=== PATIENT | female | born 1940 | race Caucasian/White ===

== ENCOUNTER 2018-02-11 09:45 | Inpatient (IN) | payer MEDICARE ==
[2018-02-11 11:10] VITALS: BMI 20.3
[2018-02-11] MEDS ORDERED: Amlodipine 5 MG TAB PO SCH (13:30)
[2018-02-11] MEDS ORDERED: Carvedilol 25 MG TAB PO SCH (13:30)
[2018-02-11] MEDS ORDERED: traMADol HCl 50 MG TAB PO PRN (15:26)
[2018-02-11] MEDS ORDERED: Acetaminophen 325 MG TAB PO PRN (15:26)
[2018-02-11] MEDS ORDERED: Dextrose 50% Abboject 50 ML SYRINGE SLOW IVP PRN (15:26)
[2018-02-11] MEDS ORDERED: Ondansetron ODT 4 MG TAB PO PRN (15:26)
[2018-02-11] MEDS ORDERED: Ondansetron HCl/PF 4 MG/2 ML Vial IVP PRN (15:26)
[2018-02-11] MEDS ORDERED: Dextrose 5% in Water 1,000 ML IV PRN (15:26)
[2018-02-11] MEDS ORDERED: HumaLOG 300 UNITS/3 ML VIAL SC PRN ×2 (15:26)
[2018-02-11] MEDS ORDERED: GoLYTELY 4,000 ml Bottle PO SCH (17:00)
[2018-02-11] MEDS: hydrALAZINE 20 MG/ML VIAL SLOW IVP PRN (18:14)
[2018-02-11] MEDS ORDERED: Labetalol HCl 100 MG/20 ML VIAL SLOW IVP PRN (20:36)
[2018-02-11] MEDS: Carvedilol 25 MG TAB PO SCH (21:22)
--- NOTE | 2018-02-11 21:41 | CON ---
DATE OF CONSULTATION: 02/11/2018 REASON FOR CONSULTATION: Symptomatic anemia, iron-deficiency anemia. CONSULTING PHYSICIAN: Dr. Jameson Tang. HISTORY OF PRESENT ILLNESS: The patient is a 77-year-old female with past medical history of hyperli pidemia, hypertension, diabetes, hypothyroidism, atrial fibrillation on chronic anticoagulation, cere brovascular accident, coronary artery disease, and chronic lower back pain presenting with complaints of shortness of breath. She states that over the last year, she has been having progressively worse kushal complaints of weakness, shortness of breath, and dyspnea on exertion more especially within the last couple of months. This was also associated with increased dizziness/lightheadedness that has be en occurring over the last few months, where the patient will feel as "all the blood is rushing to my head." In addition to the above, she states that she has had approximately 20 to 40 pounds weight loss over the last 6-12 months unintentionally, although she had participated in an herbal supplement program in the summer of last year, where she was taking many different supplements that were report ed to treat her diabetes and cure her all these ailments. The number and type of these supplements i s unknown at this time. She also complains of increased nausea and vomiting primarily with the consu mption of coffee in the morning, where shortly after her consumption of the coffee, she will have dry heaves; however, with discontinuation of coffee ingestion this symptom will not occur. Currently, s he denies any nausea, vomiting, fevers, chills, abdominal pain, GI bleeding, odynophagia, or dysphagi a. Of note, the patient was recently stopped on her anticoagulation due to an arthroplasty performed on 12/02/2017 and she was noted to have a hemoglobin of 8.2 at that particular point in time. With the worsening of her shortness of breath, she was evaluated in the GI clinic with routine labs and iron i ndices obtained at that time showing a hemoglobin of 6. Iron of 21, ferritin of 13, and TIBC of 398. Concerning for iron-deficiency anemia, upon evaluation of these labs, she was ultimately recommende d that she proceeded to [facility] for further evaluation. REVIEW OF SYSTEMS: A 10-category review of systems was obtained with all responses negative except f or the pertinent positives as listed in the HPI. PAST MEDICAL HISTORY: As per HPI. PAST SURGICAL HISTORY: Hysterectomy, cataract surgery, cardiac stenting in 2013. SOCIAL HISTORY: Denies any tobacco, alcohol or illicit drug use. FAMILY HISTORY: Denies any GI malignancies. OUTPATIENT MEDICATIONS: 1. Amiodarone 100 mg daily. 2. Amlodipine 5 mg daily. 3. Atorvastatin 40 mg at night. 4. Carvedilol 25 mg b.i.d. 5. Levothyroxine 112 mcg one-half tablet daily. 6. Lisinopril 20 mg twice daily 7. Metformin 500 mg twice daily. ALLERGIES: IODINE. PHYSICAL EXAMINATION: VITAL SIGNS: Temperature 98.1, pulse 65, blood pressure 173/65, respiratory rate 18, satting 93% on room air. GENERAL: Patient was lying in bed in no acute distress. Alert and oriented x4. HEENT: Normocephalic, atraumatic. NECK: Supple. No JVD or scleral icterus noted. CARDIOVASCULAR: Regular rate and rhythm. A 3/6 systolic murmur best heard at the left lower sternal border, otherwise no discernible gallops or rubs. LUNGS: Clear to auscultation bilaterally with no discernible wheezes or rales. ABDOMEN: Normoactive bowel sounds, soft, nontender, nondistended. EXTREMITIES: No cyanosis, clubbing, or edema. LABORATORY DATA: Review of outside records with CBC with a white blood cell count of 6.7, hemoglobin 6.5, hematocrit 20.7, platelets 315, MCV 77, RDW 17. Iron 21, ferritin 13, TIBC 398 and B12 of 193, folate greater than 20. IMAGING DATA: 1. No current GI imaging is available for review; however, patient underwent a colonoscopy on 2015, which showed sigmoid diverticulosis. 2. 1-2 mm rectosigmoid polyps. A 5 mm polyp at the ileocecal valve 3. Internal and external hemorrhoids. The pathology surrounding the polyps seen showed ischemic pat tern colopathy within the cecum as well as hyperplastic polyps were removed from the rectosigmoid are a. ASSESSMENT AND PLAN: The patient is a 77-year-old female with past medical history of hyperlipidemia , hypertension, diabetes, hypothyroidism, atrial fibrillation on chronic anticoagulation, cerebrovasc ular accident, coronary artery disease, and chronic lower back pain presenting with symptomatic anemi a. Symptomatic anemia. The patient is presenting with a year long history of progressively worsening sh ortness of breath, dizziness, and dyspnea on exertion with acceleration of her symptoms within the la st 1-2 months. She also endorses a weight loss of approximately 20-40 pounds over the past year unin tentionally, although she had been on a supplement program at the summer of last year for general a [facility] benefits (not for the purpose of weight loss). Her last colonoscopy was approximately 2-1/2 year s ago with no significant findings at that particular point in time, but she has never had an upper e ndoscopy per our records. At this time, she is presenting with iron indices that are consistent with iron iron-deficiency anemia while on anticoagulation, which could be due to an occult GI bleed. Dif ferential could include esophagitis, gastritis, peptic ulcer disease, colitis especially ischemia, ar teriovenous malformation, Dieulafoy lesion, and/or GI neoplasm (less likely). RECOMMENDATIONS: 1. We would continue to trend H&H and transfuse as necessary to maintain an H&H of 7/21. 2. Continue to monitor clinically for signs of GI bleeding. 3. We would place the patient on a clear liquid diet today and make the patient n.p.o. at midnight i n preparation for endoscopy tomorrow. 4. We will perform both EGD and colonoscopy tomorrow for evaluation of iron-deficiency anemia. Furt her recommendations to follow endoscopy. 5. We would place the patient on B12 supplementation, given her low B12 levels. 6. We will obtain auto antibodies for possible pernicious anemia. We will continue to follow. Please call with any questions.
[2018-02-11] MEDS: Sodium Chloride 0.9% 1,000 ML IV SCH (22:23)
[2018-02-12] MEDS: hydrALAZINE 20 MG/ML VIAL SLOW IVP PRN ×2 (02:25→14:15)
[2018-02-12 04:20] LABS: #Eosinphils 0.1 thou/uL (0.0-0.7); #Lymphocytes 1.6 thou/uL (1.20-3.40); #Monocytes 0.7 thou/uL (0.11-0.59); #Neutrophils 4.3 thou/uL (1.40-6.50); %Basophils 0.6 % (0.0-1.0); %Eosinophils 1.5 % (0.0-10.0); %Lymphocytes 23.8 % (21.0-51.0); %Monocytes 10.6 % (0.0-10.0); %Neutrophils 63.6 % (42.0-75.0); Hemoglobin 9.8 g/dL (12.0-16.0); Mean Corpuscular HGB CONC 32.2 g/dL (32.0-36.0); Mean Corpuscular Hemoglobin 26.3 pg (27.0-31.0); Mean Corpuscular Volume 81.8 fL (78.0-98.0); Mean Platelet Volume 8.4 fL (7.4-10.4); Platelet Count 271 thou/uL (130-400); RBC Distribution Width 17.6 % (11.5-14.5); Red Blood Cell (RBC) Count 3.73 mill/uL (4.20-5.40); White Blood Cell (WBC) Count 6.8 thou/uL (4.8-10.8)
[2018-02-12 04:58] LABS: Anion Gap 14 mmol/L (10-20); BUN (Urea Nitrogen) 7 mg/dL (9.8-20.1); Calc. Creatinine Clearance 54 mL/min (70-130); Calcium 9.2 mg/dL (7.8-10.44); Carbon Dioxide 26 mmol/L (23-31); Chloride 103 mmol/L (98-107); Estimated GFR-MDRD 72; Glucose 111 mg/dL (83-110); Sodium 140 mmol/L (136-145)
[2018-02-12 05:02] LABS: Potassium 2.9 mmol/L (3.5-5.1)
[2018-02-12] MEDS: Sodium Chloride 0.9% 1,000 ML IV SCH (05:27)
[2018-02-12] MEDS ORDERED: Magnesium 2 GM/50 ML 2 GM in Premix Bag 1 BAG IVPB SCH (06:00)
[2018-02-12] MEDS ORDERED: Nitroglycerin 2% Ointment 1 INCH/1 GM Packet TOP SCH (06:30)
[2018-02-12] MEDS: Carvedilol 25 MG TAB PO SCH (08:27)
[2018-02-12] MEDS: Potassium Chloride 20 MEQ in Premix Bag 1 BAG IVPB SCH ×2 (08:28→11:57)
[2018-02-12] MEDS ORDERED: Lisinopril 20 MG TAB PO SCH (09:00)
[2018-02-12] MEDS ORDERED: Amlodipine 5 MG TAB PO SCH (09:00)
--- NOTE | 2018-02-12 13:53 | OP ---
DATE OF PROCEDURE: 02/12/2018 GI ENDOSCOPY NOTE SURGEON: Farhat Butler M.D. INSTRUMENT PROCESSING TECH SURGEON: None. PROCEDURES: 1. EGD with biopsies. 2. Colonoscopy with snare polypectomy. INDICATION: Iron deficiency anemia. MEDICATIONS: See anesthesia record. FINDINGS: After discussion of the risks, benefits and alternatives of the procedure, informed consen t was obtained and witnessed. Pre-endoscopic cardiopulmonary examination was satisfactory. Timeout was performed before sedation was achieved. Sedation was achieved with anesthesia assistance in the endoscopy unit. A Pentax adult upper endoscope was placed into the oropharynx and passed through the cricophryngeus under direct visualization. The esophageal mucosa appeared normal throughout with a normal-appearing Z-line. The endoscope was advanced into the stomach. Forward and retroflexed views of the entire gastric mucosa were obtained. The gastric mucosa appeared normal throughout. There w as no evidence of any mucosal abnormalities. No evidence of any old blood or active bleeding on forw isabel and retroflexed views in the stomach. The endoscope was advanced through the pylorus and into th e first and second portions of the duodenum, which also appeared normal. I did obtain biopsies from the second portion of the duodenum and the duodenal bulb to rule out celiac disease. The upper endos cope was completely withdrawn and the patient was repositioned. A digital rectal exam was performed which demonstrated external hemorrhoids. A Pentax adult colonosc ope was inserted into the anus and passed forward to the cecum in the usual fashion. The cecal base was identified by the appendiceal orifice as well as the ileocecal valve. The terminal ileum was not intubated. The colonoscope was then slowly withdrawn in a gradual circumferential manner with caref ul examination of the entire colonic mucosa. The quality of the prep was good. The colonic mucosa a ppeared normal throughout. There was no evidence of any old blood or active bleeding in the colon. No evidence of any mucosal abnormalities in the descending colon. There was a single tiny 1 mm sessi le polyp. This was completely removed with cold snare, but unable to be retrieved for pathology. In the sigmoid colon, there was a couple of small to medium sized diverticula. Retroflexion in the rec jasvir demonstrated internal hemorrhoids. The colonoscope was completely withdrawn and the procedure wa s completed. IMPRESSION: 1. Normal esophagogastroduodenoscopy, with duodenal biopsies obtained to rule out celiac disease. 2. Sigmoid diverticulosis. 3. A 1 mm descending colon polyp, completely removed with cold snare, not retrieved for pathology. 4. Internal and external hemorrhoids. 5. Otherwise, normal colonoscopy to the cecum. 6. No findings on today's examination to explain her iron deficiency anemia. RECOMMENDATIONS: 1. Follow up pathology on the duodenal biopsies. 2. Advance diet. 3. Iron supplementation. 4. We will have our office arrange for small bowel capsule endoscopy on an outpatient basis chan hong. 5. No barriers to discharge from a GI perspective. Please call back anytime with questions or concerns.
[2018-02-12] MEDS ORDERED: Lidocaine 1% PF 5 ML VIAL ONE (14:31)
[2018-02-12] MEDS ORDERED: PROPOFOL 200 MG/20 ML VIAL ONE (14:31)
[2018-02-12 16:48] VITALS: BP 189/63; TEMP 98.4
[2018-02-15 16:13] LABS: Intrinsic Factor Block Autoabs 1.1 AU/mL (0.0-1.1)
== END 2018-02-12 18:21 | disposition home or self-care (01) | DRG 812 ==
LOC: T4-B 10:48
PROVIDERS: ADMIT Internal Medicine Infectious Disease; ATTEND Internal Medicine Infectious Disease
PROC: 0DB98ZX Excision of Duodenum, Via Natural or Artificial Opening Endoscopic, Diagnostic (ICD-10-PCS; principal; 2018-02-12)
PROC: 0DBM8ZZ Excision of Descending Colon, Via Natural or Artificial Opening Endoscopic (ICD-10-PCS; 2018-02-12)
DX: D50.9 Iron deficiency anemia, unspecified (principal); E78.5 Hyperlipidemia, unspecified; I10 Essential (primary) hypertension; E11.9 Type 2 diabetes mellitus without complications; E03.9 Hypothyroidism, unspecified; I48.91 Unspecified atrial fibrillation; Z79.01 Long term (current) use of anticoagulants; I25.10 Atherosclerotic heart disease of native coronary artery without angina pectoris; Z86.73 Personal history of transient ischemic attack (TIA), and cerebral infarction without residual deficits; G89.29 Other chronic pain; M54.5 Low back pain; K63.5 Polyp of colon; K57.30 Diverticulosis of large intestine without perforation or abscess without bleeding; K64.4 Residual hemorrhoidal skin tags; K64.8 Other hemorrhoids
CPT/HCPCS: 36415; 36416; 36430; 80048; 83735; 83921; 85025; 86340; 86850; 86900; 86901; 88305; J0360; J2001; J2704; J3480; P9016

== ENCOUNTER 2018-03-16 09:00 | Outpatient (CLI) | payer MEDICARE ==
[2018-03-16] MEDS ORDERED: Iopamidol 370 76% 100 ML VIAL ONE (11:42)
--- NOTE | 2018-03-16 11:57 | CT ---
CT CHEST WITH CONTRAST CT ABDOMEN AND PELVIS WITH CONTRAST: History: Weight loss with pelvic pain, anemia, and shortness of breath. Comparison: CTA chest 08-04-16 Technique: 1. Multiple contiguous axial images were obtained in a CT of the chest with contrast. Coronal reforma ts were performed. 2. Multiple contiguous axial images were obtained in a CT of the abdomen and pelvis with contrast. Co bud reformats were performed. FINDINGS: CT CHEST: The heart is normal in size without focal cardiac abnormality. The patient has a pacemaker with its l rowena in the right atrium of the ventricle. No hilar or mediastinal lymphadenopathy are seen. No suspicious pulmonary nodules or focal infiltrates are seen in the lungs. No pneumothorax or pleura l effusion are seen. The chest wall soft tissues are unremarkable. The bones of the chest are unremarkable. CT ABDOMEN AND PELVIS: There is a 6.6 cm cyst in the right kidney. Other subcentimeter hypodensities in both kidneys likely represent cysts but are too small to definitely characterize. There is prominence of the right renal pelvis and proximal right ureter. No calcifications are seen in either kidney. The liver, gallbladder, adrenal glands, and pancreas are unremarkable. Calcifications in the spleen a re from prior granulomatous disease. There is scattered diverticula in the colon. The small bowel is unremarkable. Moderate stool retentio n is seen in the colon. The appendix is unremarkable. No abdominal or pelvic lymphadenopathy are seen . Atherosclerotic calcifications are seen in the aorta. No abdominal or pelvic lymphadenopathy are seen . The patient has a left hip prosthesis. Degenerative changes are seen in the lumbar spine. The abdom inal wall soft tissues are unremarkable. IMPRESSION: 1. No significant intrathoracic abnormality. 2. Bilateral renal cysts. 3. Diverticulosis. 4. No evidence of acute intraabdominal/pelvic abnormality. POS: [facility]
== END 2018-03-16 09:01 | disposition home or self-care (01) ==
LOC: CT 09:00
PROVIDERS: ATTEND Internal Medicine Hematology & Oncology
DX: R06.02 Shortness of breath (principal); R63.4 Abnormal weight loss; R53.1 Weakness; D50.8 Other iron deficiency anemias; N28.1 Cyst of kidney, acquired; K57.90 Diverticulosis of intestine, part unspecified, without perforation or abscess without bleeding
CPT/HCPCS: 71260; 74177

== ENCOUNTER 2018-11-17 14:03 | Outpatient (CLI) | payer MEDICARE ==
[2018-11-17 15:18] LABS: #Eosinphils 0.2 thou/uL (0.0-0.7); #Lymphocytes 2.9 thou/uL (1.20-3.40); #Neutrophils 5.3 thou/uL (1.40-6.50); %Basophils 0.3 % (0.0-1.0); %Lymphocytes 30.7 % (21.0-51.0); %Monocytes 10.9 % (0.0-10.0); %Neutrophils 56.1 % (42.0-75.0); Hemoglobin 13.9 g/dL (12.0-16.0); Mean Corpuscular HGB CONC 33.8 g/dL (32.0-36.0); Mean Corpuscular Volume 94.7 fL (78.0-98.0); Mean Platelet Volume 7.8 fL (7.4-10.4); Platelet Count 230 thou/uL (130-400); RBC Distribution Width 12.8 % (11.5-14.5); Red Blood Cell (RBC) Count 4.34 mill/uL (4.20-5.40); White Blood Cell (WBC) Count 9.4 thou/uL (4.8-10.8)
[2018-11-17 15:42] LABS: Anion Gap 15 mmol/L (10-20); BUN (Urea Nitrogen) 16 mg/dL (9.8-20.1); Calc. Creatinine Clearance 0 mL/min (70-130); Carbon Dioxide 26 mmol/L (23-31); Chloride 99 mmol/L (98-107); Estimated GFR-MDRD 48; Potassium 4.2 mmol/L (3.5-5.1); Sodium 136 mmol/L (136-145)
[2018-11-17 15:43] LABS: Glucose 96 mg/dL (83-110)
[2018-11-17 15:49] LABS: Bilirubin Negative (Negative); Blood, Urine Negative (Negative); Clarity Clear (Clear); Glucose, Urine (Dipstick) Normal (Negative); Leukocyte 25 Leu/uL (Negative); Nitrite Negative (Negative); Protein, Urine (Dipstick) 200 mg/dL (Neg-Trace); RBC/HPF 0-3 HPF (0-3); Squamous Epithelial 0-3 HPF (0-3); Urobilinogen Normal mg/dL (Less than 2)
[2018-11-17 16:10] LABS: Bacteria/HPF Rare-Few HPF (None Seen)
== END 2018-11-17 14:04 | disposition home or self-care (01) ==
LOC: LABBT 14:03
PROVIDERS: ATTEND Orthopaedic Surgery Hand Surgery
DX: Z01.818 Encounter for other preprocedural examination (principal); M67.432 Ganglion, left wrist; M19.032 Primary osteoarthritis, left wrist
CPT/HCPCS: 80048; 81001; 85025; 93005; 93010

== ENCOUNTER 2018-11-19 08:53 | Day surgery (SDC) | payer MEDICARE ==
[2018-11-17 14:17] VITALS: BMI 21.4
[2018-11-19] MEDS ORDERED: ceFAZolin Sodium (SDC) 2 GM/100 ML BAG ONE (10:22)
[2018-11-19] MEDS ORDERED: Lidocaine 1% (PF) 30 ML VIAL ONE (10:42)
[2018-11-19] MEDS ORDERED: Fentanyl 100 MCG/2 ML VIAL ONE (10:42)
[2018-11-19] MEDS ORDERED: Midazolam HCl 2 mg/2 ml Vial ONE (10:42)
[2018-11-19 11:22] LABS: #Basophils 0.1 thou/uL (0.0-0.2); #Eosinphils 0.1 thou/uL (0.0-0.7); #Monocytes 0.4 thou/uL (0.11-0.59); #Neutrophils 2.9 thou/uL (1.40-6.50); %Basophils 0.9 % (0.0-1.0); %Eosinophils 2.3 % (0.0-10.0); %Lymphocytes 36.5 % (21.0-51.0); %Neutrophils 52.4 % (42.0-75.0); Hemoglobin 13.4 g/dL (12.0-16.0); Mean Corpuscular HGB CONC 33.9 g/dL (32.0-36.0); Mean Corpuscular Hemoglobin 31.8 pg (27.0-31.0); Mean Corpuscular Volume 93.9 fL (78.0-98.0); Mean Platelet Volume 7.4 fL (7.4-10.4); Platelet Count 189 thou/uL (130-400); RBC Distribution Width 12.5 % (11.5-14.5); Red Blood Cell (RBC) Count 4.23 mill/uL (4.20-5.40); White Blood Cell (WBC) Count 5.5 thou/uL (4.8-10.8)
== END 2018-11-19 12:58 | disposition home or self-care (01) ==
LOC: SDC 08:53 → EEVIPCON 14:00
PROVIDERS: ATTEND Orthopaedic Surgery Hand Surgery
DX: M19.132 Post-traumatic osteoarthritis, left wrist (principal); M67.432 Ganglion, left wrist; M18.0 Bilateral primary osteoarthritis of first carpometacarpal joints; Z53.09 Procedure and treatment not carried out because of other contraindication
CPT/HCPCS: 36415; 85025; J0690; J2001; J2250; J3010

== ENCOUNTER 2018-12-03 05:48 | Day surgery (SDC) | payer MEDICARE ==
[2018-12-02 14:35] VITALS: BMI 21.7
[2018-12-03] MEDS ORDERED: Midazolam HCl 2 mg/2 ml Vial ONE ×2 (06:23→06:56)
[2018-12-03] MEDS ORDERED: Fentanyl 100 MCG/2 ML VIAL ONE ×3 (06:23→06:25)
[2018-12-03] MEDS ORDERED: Thrombin 5000 UNITS/5 ML VIAL ONE (06:32)
[2018-12-03] MEDS ORDERED: Sodium Chloride 0.9% 10 ML ONE (06:32)
[2018-12-03] MEDS ORDERED: Bacitracin Zinc Ointment 30 gm TUBE ONE (06:32)
[2018-12-03] MEDS ORDERED: ceFAZolin Sodium (SDC) 2 GM/100 ML BAG ONE (06:47)
[2018-12-03] MEDS ORDERED: Propofol 500 MG/50 ML VIAL ONE (06:56)
[2018-12-03] MEDS ORDERED: Ketorolac Tromethamine 30 MG/ML VIAL IVP PRN (08:22)
[2018-12-03] MEDS ORDERED: Promethazine HCl 25 MG/ML VIAL IM PRN (08:22)
[2018-12-03] MEDS ORDERED: Zolpidem Tartrate 5 MG TAB PO PRN (08:22)
[2018-12-03] MEDS ORDERED: HYDROcodone/Acetaminophen 5/325 mg Tablet PO PRN ×2 (08:22)
[2018-12-03] MEDS ORDERED: traMADol HCl 50 MG TAB PO PRN ×2 (08:22)
[2018-12-03] MEDS ORDERED: Ondansetron PF 4 MG/2 ML Vial IVP PRN (08:22)
[2018-12-03] MEDS ORDERED: Ropivacaine 0.2% 550 ML 550 ML NERVE BLCK SCH (08:22)
--- NOTE | 2018-12-03 13:23 | RAD ---
3 VIEWS LEFT WRIST: Date: 12/03/18 COMPARISON: None. HISTORY: Scaphoid extraction and wrist fusion. FINDINGS/IMPRESSION: Multiple limited intraoperative fluoroscopic views of the left wrist were submitted for interpretatio n. The patient has ongoing removal of the scaphoid bone. Multiple screws are seen spanning the carpal bones on the last images. POS: [facility]
--- NOTE | 2018-12-03 16:53 | OP ---
DATE OF PROCEDURE: 12/03/2018 PREOPERATIVE DIAGNOSES: 1. Left wrist extensor tenosynovitis involving the extensor digitorum communis, all extensor carpi radialis brevis, extensor carpi radialis longus. 2. 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 3. Scapholunate advanced collapse wrist, stage III with excellent lunate and radial lunate fossa articular surface. 4. Extensor carpi radialis brevis and extensor carpi radialis longus longitudinal tendon tear is greater than 1 cm in length. PROCEDURE PERFORMED: 1. Radical extensor tenosynovectomy of the extensor carpi radialis brevis, extensor carpi radialis longus, extensor digitorum communis to all the digits. 2. Synovectomy wrist joint with intraoperative frozen section sent demonstrating pseudogout crystals. 3. Extensor carpi radialis longus repair. 4. Extensor carpi radialis brevis repair. 5. Scaphoid excision. 6. Four-corner arthrodesis. 7. C-arm use. SPECIMEN: 1. Tenosynovial wrist joint. 2. Tenosynovial extensor tendons. ESTIMATED BLOOD LOSS: 20 mL. TOURNIQUET TIME: 120 minutes. INTRAOPERATIVE FINDINGS: Again, tenosynovitis and the synovitis of the wrist described above with pseudogout crystals seen on specimen. DESCRIPTION OF PROCEDURE: After successful general endotracheal anesthesia, the limb was prepped and draped. The limb was identified via time-out to be the left side, she had obvious swelling in the market preop and the consent matched the history and physical and these findings. Once time-out was done, and the limb was prepped and draped, limb was exsanguinated, tourniquet inflated to 250 mmHg pressure. A zigzag incision was made, very generous, dissected through the skin, saved the large tenosynovial swelling, which was easily seen to surround the ECRL, ECRB, spared the EPL and involved the EDC. We did identify superficial radial and superficial ulnar nerve, protected them throughout the entire procedure. We made a Z release of the retinaculum, peeled it back and tagged both sides with a 2-0 Vicryl undyed. We then saw the marked tenosynovial swelling and then used each extensor digitorum communis tendon to each of the four digits, underwent individual radical tenosynovectomy, followed by a radical tenosynovectomy of the ECRL, ECRB with the ECRL having the greatest involvement, where there was a 1 cm area with almost 40% of the tendon had been eroded. Proximally, there was a 2 cm area on ECRB, where approximately 20% erosion or so. The eroded tendon was debrided, and then, longitudinal repair was performed with a 4-0 Prolene in a running fashion. Once the tendon repair at ECRL and ECRB was completed, an extensor tenosynovectomy was completed, we then approached the wrist joint. First, a large capsular flap in a rectangular shape was made as the scaphoid was already protruding through the capsule interval of 6 mm area. We then debrided material that looked to be the same type seen with crystal arthropathy and sent a specimen of this along with the capsule as well as the tendon tenosynovectomy to the lab with an order for a frozen to look for gout. It came back 1 hour later as crystal arthropathy pseudogout. We then saw that the scaphoid was nearly 90% bald, radioscaphoid fossa was eroded, but the lunate fossa was intact with no chondral loss and it was no chondral loss on the lunate itself, so this was preserved. The capitate, hamate, and the articulation with the lunate showed over 50% loss of bone down to inebriated bone. We then began a series of using a rongeur, bur, and curette to get the cancellous bone and we decorticated the surfaces for the four-corner fusion to include the lunotriquetral area. We then took the scaphoid, removed bone graft from it, but it was not enough for the fusion due to the deterioration of the bone, so we had to use cancellous chips, which were soaked with normal saline on the back table with blood. We then finished our decortication, reduced it to get a maximum of coaptation of the lunate on the capitate, placed a bone graft in all 4 sites until that was packed from posterior to dorsal, and provisionally fixed these wires to the capitolunate and the hamate and triquetrum. This was done while we closed the lunate to the triquetrum. Once we saw excellent position to include complete reduction of the previous dorsal tilt of the lunate, we then placed more bone graft, and then began a series of screws, from the capitate to the lunate with a 3.0 headless screw compressed, from the hamate to the triquetrum 3.0 screw compressed, and then for the lunate triquetrum, from an ulnar to radial aspect, we placed the 2.4 headless screws compressed as we did the same screw in the reduced hamate to capitate. Released the tourniquet. We had excellent hemostasis. Some bone graft was pushed out with the compression, it was packed back in, and then, there were no gaps in the joint clinically or radiographically. We obtained hemostasis, we then closed the capsule with an interrupted #1 Ethibond, we then closed the retinaculum with a 2-0 Vicryl, subcutaneous closed with a running 4-0 Monocryl, and the skin was approximated with 4-0 nylon. The patient had a block, so left the operating room without injection and no evidence of anesthetic or operative complication in a sugar-tong splint. Job ID: [id number]
== END 2018-12-03 13:45 | disposition home or self-care (01) ==
LOC: SDC 05:48
PROVIDERS: ATTEND Orthopaedic Surgery Hand Surgery
PROC: 0LB60ZZ Excision of Left Lower Arm and Wrist Tendon, Open Approach (ICD-10-PCS; principal; 2018-12-03)
PROC: 0RGP07Z Fusion of Left Wrist Joint with Autologous Tissue Substitute, Open Approach (ICD-10-PCS; 2018-12-03)
PROC: 0RGP04Z Fusion of Left Wrist Joint with Internal Fixation Device, Open Approach (ICD-10-PCS; 2018-12-03)
DX: M19.132 Post-traumatic osteoarthritis, left wrist (principal); M11.232 Other chondrocalcinosis, left wrist; M65.88 Other synovitis and tenosynovitis, other site; M18.0 Bilateral primary osteoarthritis of first carpometacarpal joints; I10 Essential (primary) hypertension; E11.9 Type 2 diabetes mellitus without complications; E03.9 Hypothyroidism, unspecified; Z79.84 Long term (current) use of oral hypoglycemic drugs; Z79.899 Other long term (current) drug therapy; Z91.041 Radiographic dye allergy status; Z96.642 Presence of left artificial hip joint; Z96.653 Presence of artificial knee joint, bilateral
CPT/HCPCS: 25810; 73110; 76000; A4306; C1713; 88304; 88305; 88311; 88333; 89060; J0131; J0690; J2250; J2704; J2795; J3010; J3490

== ENCOUNTER 2018-12-16 13:35 | Outpatient (CLI) | payer MEDICARE ==
--- NOTE | 2018-12-16 17:41 | CT ---
HEAD CT NONCONTRAST: INDICATION: Dizziness with frequency of falls. FINDINGS: There is no acute intracranial hemorrhage, mass effect, or midline shift. Comparing to 02/16/2015 exam, there has been no significant interval detrimental change. A mild degr ee of global atrophy is similar-appearing. Mild chronic ischemic disease of the cerebral white matte r is present. There are inspissated secretions of the partially imaged left maxillary sinus. Mucosa l thickening is seen within the paranasal sinuses. Maxillary sinus fernandez are thickened indicating se quelae from chronic sinusitis. Partially imaged nasal bone deformity is present. Correlate for evid ence of nasal injury. IMPRESSION: 1. No acute intracranial hemorrhage or mass effect. 2. Nasal bone irregularity. This is of indeterminate acuity on the basis of this exam. Recommend c linical correlation. 3. Paranasal sinus inflammatory disease as above. POS: [facility]
== END 2018-12-16 13:36 | disposition home or self-care (01) ==
LOC: BICCT 13:35
PROVIDERS: ATTEND Internal Medicine Geriatric Medicine
DX: R42 Dizziness and giddiness (principal); R29.6 Repeated falls; J32.9 Chronic sinusitis, unspecified; J34.89 Other specified disorders of nose and nasal sinuses
CPT/HCPCS: 70450

== ENCOUNTER 2019-06-08 13:57 | Emergency (ER) | payer MEDICARE ==
--- NOTE | 2019-06-08 15:17 | RAD ---
Exam: XR Knee Rt 4 View STANDARD HISTORY: Right knee pain which started one day ago with swelling and large bruised posterior thigh. COMPARISON: None FINDINGS: Right total knee prosthesis is noted without evidence of hardware complication. No acute fracture, dislocation, or other acute osseous abnormality is identified. Vascular calcifications are seen posterior to the knee. IMPRESSION: Right total knee prosthesis without evidence of an acute osseous abnormality.
--- NOTE | 2019-06-08 15:45 | ULT ---
ULTRASOUND WITH DOPPLER DUPLEX VENOUS LOWER EXTREMITY RIGHT: 06/08/19 HISTORY: 79-year-old female with right lower extremity edema. TECHNIQUE: Color flow Doppler, spectral waveform analysis of pulsed Doppler, and ralph-scale imaging with justina dann and augmentation, were used to evaluate the right common femoral, femoral, popliteal, posterior tibial, and superficial femoral, veins; and the proximal portions of the profunda femoral and greater saphenous, veins. FINDINGS: There is normal compressibility, demonstration of blood flow by color Doppler and pulsed Doppler, and response to augmentation, in all interrogated veins. IMPRESSION: Negative. No deep vein thrombosis in the right lower extremity. jn [] POS: [facility]
== END 2019-06-08 16:00 | disposition home or self-care (01) ==
LOC: ERS 13:57
DX: S70.11XA Contusion of right thigh, initial encounter (principal); E11.9 Type 2 diabetes mellitus without complications; E03.9 Hypothyroidism, unspecified; I10 Essential (primary) hypertension; Z79.84 Long term (current) use of oral hypoglycemic drugs; Z79.899 Other long term (current) drug therapy; W19.XXXA Unspecified fall, initial encounter

== ENCOUNTER 2020-07-12 17:19 | Outpatient (CLI) | payer MEDICARE | END 2020-07-12 17:20 | disposition home or self-care (01) | LOC: LABBT 17:19 | PROVIDERS: ATTEND Orthopaedic Surgery Hand Surgery | DX: Z01.818 Encounter for other preprocedural examination (principal); M65.332 Trigger finger, left middle finger; T84.84XA Pain due to internal orthopedic prosthetic devices, implants and grafts, initial encounter; Z20.822 Contact with and (suspected) exposure to COVID-19 | CPT/HCPCS: 85025; U0003; U0005; 87635; 93005; 93010 ==

== ENCOUNTER 2020-07-13 14:00 | Outpatient (CLI) | payer MEDICARE ==
[2020-07-13 14:52] LABS: Bilirubin Neg (Negative); Blood, Urine Negative (Negative); Clarity Clear (Clear); Glucose, Urine (Dipstick) Normal (Negative); Ketone, Urine Negative (Negative); Leukocyte 25 (Negative); Nitrite Negative (Negative); Protein, Urine (Dipstick) 500 mg/dl (Neg-Trace); Urobilinogen Normal mg/dL (Less than 2)
[2020-07-13 15:12] LABS: Bacteria/HPF None Seen HPF (None Seen); RBC/HPF None Seen HPF (0-3); Squamous Epithelial 0-3 HPF (0-3); WBC/HPF 0-3 HPF (0-3)
== END 2020-07-13 14:01 | disposition home or self-care (01) ==
LOC: LABBT 14:00
PROVIDERS: ATTEND Orthopaedic Surgery Hand Surgery
DX: Z01.812 Encounter for preprocedural laboratory examination (principal)
CPT/HCPCS: 81001

== ENCOUNTER 2020-07-17 09:36 | Day surgery (SDC) | payer MEDICARE ==
[2020-07-13 12:39] VITALS: BMI 23.3
[2020-07-17] MEDS ORDERED: PROPOFOL 200 MG/20 ML VIAL ONE (12:42)
[2020-07-17] MEDS ORDERED: Ketorolac Tromethamine 30 MG/ML VIAL ONE (12:42)
[2020-07-17] MEDS ORDERED: Ondansetron PF 4 MG/2 ML Vial ONE (12:42)
[2020-07-17] MEDS ORDERED: Lidocaine 1% PF 5 ML VIAL ONE (12:42)
[2020-07-17] MEDS ORDERED: Dexamethasone 20 MG/5 ML VIAL ONE (12:42)
[2020-07-17] MEDS ORDERED: Fentanyl 100 MCG/2 ML VIAL ONE (17:09)
[2020-07-17] MEDS ORDERED: Lidocaine 1% w/Epinephrine 1:100K 20 ML VIAL ONE (17:14)
[2020-07-17] MEDS ORDERED: Bupivacaine PF 0.5% 30 ML VIAL ONE ×2 (17:14→20:06)
[2020-07-17] MEDS ORDERED: Sodium Chloride 0.9% 10 ML ONE (17:14)
[2020-07-17] MEDS ORDERED: Labetalol HCl 100 MG/20 ML VIAL ONE (17:43)
[2020-07-17] MEDS ORDERED: Betamet Acet/Betamet Na Ph 30 MG/5 ML VIAL ONE (18:31)
[2020-07-17] MEDS ORDERED: Bacitracin Zinc Ointment 30 gm TUBE ONE (18:31)
[2020-07-17] MEDS ORDERED: EPINEPHrine 1 MG/ML AMP ONE (20:06)
[2020-07-17] MEDS ORDERED: hydrALAZINE 20 MG/ML VIAL ONE (20:34)
[2020-07-17] MEDS ORDERED: HYDROcodone/Acetaminophen 5/325 mg Tablet ONE (21:18)
== END 2020-07-17 21:45 | disposition home or self-care (01) ==
LOC: SDC 09:36
PROVIDERS: ATTEND Orthopaedic Surgery Hand Surgery
PROC: 0LN80ZZ Release Left Hand Tendon, Open Approach (ICD-10-PCS; principal; 2020-07-17)
PROC: 0RPX0JZ Removal of Synthetic Substitute from Left Finger Phalangeal Joint, Open Approach (ICD-10-PCS; 2020-07-17)
PROC: 0LB80ZZ Excision of Left Hand Tendon, Open Approach (ICD-10-PCS; 2020-07-17)
PROC: 0LU707Z Supplement Right Hand Tendon with Autologous Tissue Substitute, Open Approach (ICD-10-PCS; 2020-07-17)
PROC: 0LR707Z Replacement of Right Hand Tendon with Autologous Tissue Substitute, Open Approach (ICD-10-PCS; 2020-07-17)
DX: S66.311A Strain of extensor muscle, fascia and tendon of left index finger at wrist and hand level, initial encounter (principal); M65.332 Trigger finger, left middle finger; T84.84XA Pain due to internal orthopedic prosthetic devices, implants and grafts, initial encounter; M65.842 Other synovitis and tenosynovitis, left hand; I10 Essential (primary) hypertension; E11.51 Type 2 diabetes mellitus with diabetic peripheral angiopathy without gangrene; E03.9 Hypothyroidism, unspecified; I48.91 Unspecified atrial fibrillation; I70.0 Atherosclerosis of aorta; M18.0 Bilateral primary osteoarthritis of first carpometacarpal joints; Z79.82 Long term (current) use of aspirin; Z79.84 Long term (current) use of oral hypoglycemic drugs; Z79.899 Other long term (current) drug therapy; Z91.041 Radiographic dye allergy status; Z95.0 Presence of cardiac pacemaker
CPT/HCPCS: 88304; J0171; J0360; J0690; J0702; J1100; J1885; J2405; J2704; J3010; J3490; S0020

== ENCOUNTER 2021-03-27 11:20 | Outpatient (CLI) | payer MEDICARE | END 2021-03-27 11:21 | disposition home or self-care (01) | LOC: BICRAD 11:20 | PROVIDERS: ATTEND Nurse Practitioner Family | DX: R09.89 Other specified symptoms and signs involving the circulatory and respiratory systems (principal) | CPT/HCPCS: 71046 ==

== ENCOUNTER 2021-04-25 13:33 | Outpatient (CLI) | payer MEDICARE | END 2021-04-25 13:34 | disposition home or self-care (01) | LOC: SCSCT 13:33 | PROVIDERS: ATTEND Family Medicine | DX: R05.9 Cough, unspecified (principal); J47.9 Bronchiectasis, uncomplicated | CPT/HCPCS: 71250 ==

== ENCOUNTER 2022-05-04 10:27 | Emergency (ER) | payer MEDICARE ==
[~2022-05-04 10:27] MED LIST: Iopamidol-370 76% 500 ML 1 ML ONE
[2022-05-04] MEDS ORDERED: Acetaminophen 500 MG TAB ONE (10:50)
[2022-05-04] MEDS ORDERED: cefTRIAXone\\ROCEPHIN 1 GM VIAL ONE (11:14)
[2022-05-04 11:28] LABS: Hemoglobin 13.6 g/dL (12.0-16.0); Mean Corpuscular HGB CONC 33.9 g/dL (32.0-36.0); Mean Corpuscular Hemoglobin 31.8 pg (27.0-31.0); Mean Corpuscular Volume 93.9 fl (78.0-98.0); Mean Platelet Volume 8.2 fL (7.4-10.4); Platelet Count 178 10x3/uL (130-400); RBC Distribution Width 12.7 % (11.5-14.5); Red Blood Cell (RBC) Count 4.28 mill/uL (4.20-5.40); White Blood Cell (WBC) Count 17.7 10x3/uL (4.8-10.8)
[2022-05-04 11:51] LABS: ALT (SGPT) 9 U/L (8-55); AST (SGOT) 18 U/L (5-34); Albumin 3.6 g/dL (3.4-4.8); Alkaline Phosphatase 55 U/L (40-110); Anion Gap 15 mmol/L (10-20); BUN (Urea Nitrogen) 22 mg/dL (9.8-20.1); Bilirubin, Total 1.6 mg/dL (0.2-1.2); Calc. Creatinine Clearance 0 mL/min (70-130); Calcium 8.4 mg/dL (7.8-10.44); Carbon Dioxide 22 mmol/L (23-31); Chloride 103 mmol/L (98-107); Estimated GFR 48; Globulin 2.3 g/dL (2.4-3.5); Glucose 143 mg/dL (83-110); Potassium 3.5 mmol/L (3.5-5.1); Protein, Total 5.9 g/dL (5.8-8.1); Sodium 136 mmol/L (136-145)
[2022-05-04 12:00] LABS: Band 26 % (5-11); Lymphocytes 3 % (21-51); MDiff Complete? YES; Monocytes 5 % (0-10); Neutrophil 63 % (42-75); Platelet Morphology Comment Appears Adequate; Polychromasia SLIGHT = 2-3 cells (100X) (0-2/hpf); Reactive Lymphocytes 3 % (0-10)
[2022-05-04 12:12] LABS: CKMB 1.1 ng/mL (0-6.6)
[2022-05-04 13:05] LABS: SARS-CoV-2 NAA Rapid Test Not Detected (NotDetected)
[2022-05-04] MEDS ORDERED: Doxycycline 100 MG in Sodium Chloride 0.9% 100 ML IVPB SCH (13:30)
== END 2022-05-04 16:05 | disposition short-term general hospital (02) ==
LOC: ERS 10:27
DX: J18.9 Pneumonia, unspecified organism (principal); R77.8 Other specified abnormalities of plasma proteins; A41.9 Sepsis, unspecified organism; D72.829 Elevated white blood cell count, unspecified; E11.9 Type 2 diabetes mellitus without complications; E03.9 Hypothyroidism, unspecified; I10 Essential (primary) hypertension; Z20.822 Contact with and (suspected) exposure to COVID-19; Z79.84 Long term (current) use of oral hypoglycemic drugs; Z79.899 Other long term (current) drug therapy
CPT/HCPCS: 36415; 71275; 80053; 82553; 83880; 84484; 85025; 87040; 93005; 96365; 96375; J0696; J3490; Q9967

== ENCOUNTER 2022-06-10 09:20 | Emergency (ER) | payer MEDICARE ==
[2022-06-10] MEDS ORDERED: Iopamidol-370 76% 500 ML 1 ML ONE (09:42)
[2022-06-10] MEDS ORDERED: hydrALAZINE 20 MG/ML VIAL ONE ×2 (09:57→12:40)
[2022-06-10 10:16] LABS: #Eosinphils 0.1 thou/uL (0.0-0.7); #Lymphocytes 1.9 thou/uL (1.20-3.40); #Monocytes 0.4 thou/uL (0.11-0.59); #Neutrophils 3.1 thou/uL (1.40-6.50); %Basophils 0.3 % (0.0-1.0); %Eosinophils 2.4 % (0.0-10.0); %Lymphocytes 34.3 % (21.0-51.0); %Monocytes 7.6 % (0.0-10.0); %Neutrophils 55.4 % (42.0-75.0); Hemoglobin 14.6 g/dL (12.0-16.0); Mean Corpuscular HGB CONC 33.9 g/dL (32.0-36.0); Mean Corpuscular Hemoglobin 31.8 pg (27.0-31.0); Mean Corpuscular Volume 93.9 fl (78.0-98.0); Mean Platelet Volume 7.7 fL (7.4-10.4); Platelet Count 213 10x3/uL (130-400); RBC Distribution Width 14.1 % (11.5-14.5); Red Blood Cell (RBC) Count 4.59 mill/uL (4.20-5.40); White Blood Cell (WBC) Count 5.5 10x3/uL (4.8-10.8)
[2022-06-10] MEDS ORDERED: methylPREDNISolone Sod Succ 40 MG VIAL ONE (10:17)
[2022-06-10] MEDS ORDERED: Famotidine/PF 20 mg/2ml Vial ONE (10:17)
[2022-06-10] MEDS ORDERED: diphenhydrAMINE 50 MG/ML VIAL ONE (10:17)
[2022-06-10] MEDS ORDERED: diphenhydrAMINE 50 MG CAP ONE (10:17)
[2022-06-10 10:42] LABS: ALT (SGPT) 16 U/L (8-55); AST (SGOT) 20 U/L (5-34); Alkaline Phosphatase 68 U/L (40-110); Anion Gap 13 mmol/L (10-20); BUN (Urea Nitrogen) 19 mg/dL (9.8-20.1); Bilirubin, Total 0.9 mg/dL (0.2-1.2); Calc. Creatinine Clearance 0 mL/min (70-130); Calcium 9.8 mg/dL (7.8-10.44); Carbon Dioxide 28 mmol/L (23-31); Chloride 97 mmol/L (98-107); Estimated GFR 43; Glucose 165 mg/dL (83-110); Lipase 61 U/L (8-78); Sodium 134 mmol/L (136-145)
[2022-06-10] MEDS ORDERED: Acetaminophen 500 MG TAB ONE (13:01)
== END 2022-06-10 13:04 | disposition home or self-care (01) ==
LOC: ERS 09:20
DX: M54.50 Low back pain, unspecified (principal); I10 Essential (primary) hypertension; E11.9 Type 2 diabetes mellitus without complications; E03.9 Hypothyroidism, unspecified; Z79.84 Long term (current) use of oral hypoglycemic drugs; Z79.899 Other long term (current) drug therapy
CPT/HCPCS: 71045; 71275; 74174; 80053; 83690; 84484; 85025; 85652; 86140; 93005; J0360; 36415; 96374; 96375; J1200; J2920; Q9967; S0028